=== PATIENT | male | born 1945 | race Caucasian/White ===

== ENCOUNTER 2018-08-01 09:46 | Inpatient (IN) | payer MEDICARE, OTHER ==
[2018-08-01] MEDS ORDERED: Scopolamine 1.5 MG Transdermal Patch TRDERM ONE (10:30)
[2018-08-01] MEDS ORDERED: Ropivacaine 49.25 ML, Ketorolac 30 MG, EPINEPHrine 0.5 MG, cloNIDine 80 MCG, Sodium Chl... INJECT ONE ×5 (10:30)
[2018-08-01] MEDS ORDERED: Acetaminophen 500 MG Tab PO ONE (10:30)
[2018-08-01] MEDS ORDERED: Lactated Ringers 1,000 ML IV SCH (10:30)
[2018-08-01] MEDS ORDERED: ceFAZolin 2 GM in Premix Bag 1 BAG IV ONE (10:30)
[2018-08-01] MEDS ORDERED: Gabapentin 300 MG Cap PO ONE (10:30)
[2018-08-01] MEDS ORDERED: Tranexamic Acid 3,000 MG, Sodium Chloride 0.9% 100 ML IRR ONE ×2 (10:45)
[2018-08-01] MEDS ORDERED: Ondansetron 4 MG/2 ML SDV IVPUSH PRN (13:34)
[2018-08-01] MEDS ORDERED: diphenhydrAMINE 50 MG/ML SDV IVPUSH PRN (13:34)
[2018-08-01] MEDS ORDERED: traMADol 50 MG Tab PO PRN (13:34)
[2018-08-01] MEDS ORDERED: Sennosides 8.6 MG Tab PO PRN (13:34)
[2018-08-01] MEDS ORDERED: Acetaminophen/oxyCODONE 325-5 MG Tab PO PRN (13:34)
[2018-08-01] MEDS ORDERED: Naloxone 0.4 MG/ML SDV IVPUSH PRN (13:34)
[2018-08-01] MEDS ORDERED: Bisacodyl 5 MG Tab PO PRN (13:34)
[2018-08-01] MEDS ORDERED: Magnesium Hydroxide 400 MG/5 ML Susp 30 ML Cup PO PRN (13:34)
[2018-08-01] MEDS ORDERED: Docusate Sodium 100 MG Cap PO PRN (13:34)
[2018-08-01] MEDS ORDERED: Morphine 2 MG/ML Syringe IVPUSH PRN (13:34)
[2018-08-01] MEDS ORDERED: ceFAZolin 1 GM Vial IVPUSH SCH (13:45)
[2018-08-01] MEDS ORDERED: Lactated Ringers 1,000 ML IV ONE (16:05)
[2018-08-01] MEDS ORDERED: Ropivacaine 0.5% 5 MG/ML 30 ML SDV INJECT ONE (16:05)
[2018-08-01] MEDS ORDERED: fentaNYL 100 MCG/2 ML SDV IV ONE (16:05)
[2018-08-01] MEDS ORDERED: Midazolam 1 MG/ML 2 ML SDV IV ONE (16:05)
[2018-08-01] MEDS ORDERED: Ondansetron 4 MG/2 ML SDV IVPUSH ONE (16:05)
[2018-08-01] MEDS ORDERED: ePHEDrine 50 MG/ML SDV IV ONE (16:05)
[2018-08-01] MEDS ORDERED: Propofol 200 MG/20 ML SDV IV ONE (16:05)
[2018-08-01] MEDS ORDERED: Furosemide 40 MG Tab PO SCH (17:00)
--- NOTE | 2018-08-01 17:04 | PCM.SN ---
- Free Text/Narrative Note: PROVIDER SIMPLE NOTE PATIENT NAME:SHAWN MONTES DE OCA Date of :1945 Date:08/01/2018 1645 ANESTHESIA ACUTE PAIN SERVICE Date:08/01/2018 Time:1605 to 1617 Preoperative Dx:right knee osteoarthritis postoperative Dx:right partial knee replacement The surgeon and patient requests Postoperative Pain Control using Peripheral Nerve Block Procedure:Right Adductor Canal Nerve Block using ultrasound guidance Risks and benefits discussed with patient and consent was received Monitors NIBP ECG SAO2 please see nurses notes for vital signs The right leg was placed in a frog leg position ,a preprocedure U/S scan was performed identifying the Sartorius Muscle and Femerol Artery.The needle was inserted and prepped prior with chlora prep swab.Using direct U/S visualization, I inserted and advanced 20 ga 4 inch needle [stimuplexultra 360 insulated echogenic] into proper position using 2 passes.A total of 20 cc's of Naropin .5% , in divided doses and frequent negative aspiration,was injected with direct visualization.took several pictures and removed needle.Patient offered no complaints and no complications were noted. Documentation:Please see images recorded in PAC system Thank You Lorraine Amado CRNA
--- NOTE | 2018-08-01 17:19 | PCM.SN ---
- Free Text/Narrative Note: 08/02/2018 0840 Visited with Patient and he offers no complaints from yesterday or today.States he has some aching in knee,though has had no pain.
[2018-08-01] MEDS: Ketorolac 30 MG/ML SDV IVPUSH SCH ×2 (17:39→23:47)
[2018-08-01] MEDS: metFORMIN 1,000 MG Tab PO SCH (17:41)
[2018-08-01] MEDS: Gabapentin 300 MG Cap PO SCH ×2 (17:41→21:08)
[2018-08-01] MEDS: Potassium Chloride 20 MEQ Tab.ER PO SCH (17:42)
[2018-08-01] MEDS: ceFAZolin 2 GM in Premix Bag 1 BAG IV SCH (20:50)
[2018-08-01] MEDS: Simvastatin 20 MG Tab PO SCH (21:05)
[2018-08-01] MEDS: Sodium Chloride 0.9% 10 ML Syringe FLUSH PRN ×2 (21:09→23:48)
--- NOTE | 2018-08-01 21:20 | OR ---
DATE OF OPERATION: 08/01/2018 SURGEON: Ronaldo Tomas DO PREOPERATIVE DIAGNOSIS: Right knee primary osteoarthritis. POSTOPERATIVE DIAGNOSIS: Right knee primary osteoarthritis. PROCEDURE: Right knee lateral unicompartmental arthroplasty. SUBSTATION OPERATOR APPRENTICE: Nicole Edgar NP. Nurse practitioner, Nicole Edgar NP, played an essential role in assisting in this case, helping to position the patient, retract structures as needed, as well as suturing and cutting sutures as indicated. Her presence improved patient's safety and decreased operative time. ANESTHESIA: Spinal plus conscious sedation. FLUID: Lactated Ringer solution. ESTIMATED BLOOD LOSS: 200 mL. COMPLICATIONS: None. SPECIMEN: None. DISCHARGE DISPOSITION: Stable to PACU. TOURNIQUET TIME: 72 minutes. INSTRUMENTATION: DePuy Sigma size 3 intercondylar cemented femur; size 2, 9 mm polyethylene tibial insert, fixed bearing; and a size 2 intercondylar metal- backed cemented tibial tray. INDICATIONS FOR THE PROCEDURE: The patient was seen preoperatively in the clinic. He had failed nonoperative treatment. Risks and benefits of the procedure were explained to the patient. Informed consent was obtained. Preoperative imaging confirmed the above-mentioned diagnosis. DETAILS OF PROCEDURE: The patient was seen preoperatively by myself and the Anesthesia staff in the preop holding area, where the operative site was marked. He was brought to the operative suite by Anesthesia staff where spinal sedation plus conscious sedation were administered. All extremities were found to be well padded. He had a well-padded tourniquet placed on the right thigh. He had a sterile Burks catheter inserted. The left lower extremity was placed into a stirrup. The right lower extremity was placed in about 15 degrees of flexion into the hip jasmine under the tourniquet. The right lower extremity was then prepped and draped in a sterile manner. A time-out was called identifying the correct patient, correct procedure, the correct site, and antibiotics had been begun within appropriate period of time. The right lower extremity was exsanguinated. Tourniquet was raised to 300 mmHg for 72 minutes and let down after cementing. A midline incision was made 3 fingerbreadths proximal to the patella down to the level of the tibial tubercle. A lateral parapatellar arthrotomy was then made. Gelpi's were used for retraction. Bleeding was controlled with Bovie electrocautery. The infrapatellar fat pad was removed. The anterior portion of the lateral meniscus was removed. The extramedullary tibial cutting guide was then placed. The patellar tendon was retracted laterally. A vertical incision was made plus a horizontal incision. This was not big enough to accommodate a 7 mm paddle. I repeated this process 4 times until arriving at the correct depth. It was equal in both flexion and extension. We then brought the knee out into full extension and then I placed the distal femoral cutting guide and pinned this in place. I then made a distal femoral cut. I then removed the guide and the pins and then flexed the knee. This was one of the more difficult portions of the case because the patella was hard to retract medially. We inverted it at times and then retracted it medially at times and then placed my distal femoral cutting guide. We pinned this in place with a lateral pin only and then made our 3 cuts and our 2 lug holes. I then placed my femoral component, which seemed to fit very nicely and in appropriate rotation and this was stable throughout range of motion. I then removed the femoral component and then slightly adjusted another portion of my vertical cut and then placed my tibial base plate and secured it in place with lamina physician office secretary and then gouged my keel from my tibial base plate and then checked this with my hockey-stick to make sure that it was appropriate. I did settle on a size 2. I measured this a few different times using the hook posteriorly and then trying not to overhang laterally. We then drilled the lug after removing the lamina physician office secretary and flexing the knee through the base plate. Then copiously irrigated with saline as well as Betadine-infused irrigation and TXA and applied a periarticular injection. We then dried the bone and then cemented our components in place in approximately 20 degrees of flexion. After the cement hardened and we had concluded that we had removed all of our excess cement, I then removed more of the infrapatellar fat pad and worked on our bleeders. He had a lot of small bleeders coming from the fat as well as from the bone from our pin placement. I cauterized the posterolateral corner just for good measure, but I did not see any significant bleeding. We applied Gelfoam as well as Floseal and then allowed this to sit in place with a lap sponge for compression. We then placed our final tibial polyethylene component, which provided excellent range of motion and stability. I then irrigated again with Betadine-infused irrigation and then had my entry level marketing assistant close the incision with two #5 [id number] Ethibonds, #1 Stratafix in a continuous manner for the parapatellar arthrotomy, and then another #1 Stratafix subcutaneously, followed by skin nayeli, followed by Betadine-soaked Adaptic and a sterile dressing as well as an Jose wrap. The patient was allowed to awaken from conscious sedation and then transferred to his hospital bed in good condition. /[id number] BS/DANYA
[2018-08-02] MEDS: ceFAZolin 2 GM in Premix Bag 1 BAG IV SCH (04:45)
[2018-08-02] MEDS: Sodium Chloride 0.9% 10 ML Syringe FLUSH PRN (04:45)
[2018-08-02] MEDS: Pantoprazole 40 MG Tab.CR PO SCH (05:02)
--- NOTE | 2018-08-02 09:30 | PCM.PN ---
- General Info Date of Service: 08/02/18 Admission Dx/Problem (Free Text): Right knee primary OA Functional Status: Reports: Pain Controlled, Tolerating Diet, Ambulating - Review of Systems General: Reports: No Symptoms HEENT: Reports: No Symptoms Pulmonary: Reports: No Symptoms Cardiovascular: Reports: No Symptoms Gastrointestinal: Reports: No Symptoms Genitourinary: Reports: No Symptoms Musculoskeletal: Reports: Leg Pain, Joint Pain, Joint Swelling Skin: Reports: No Symptoms Neurological: Reports: No Symptoms Psychiatric: Reports: No Symptoms - Patient Data Vitals - Most Recent: Last Vital Signs Temp 97.6 F 08/02/18 05:00 Pulse 60 08/02/18 05:00 Resp 18 08/02/18 05:00 BP 104/58 L 08/02/18 05:00 Pulse Ox 97 08/02/18 05:00 Weight - Most Recent: 245 lb I&O - Last 24 Hours: Intake & Output 08/01/18 08/02/18 08/02/18 22:59 06:59 14:59 Intake Total 804 Output Total 600 Balance 204 Lab Results Last 24 Hours: Laboratory Results - last 24 hr 08/01/18 08/01/18 08/02/18 Range/Units 10:35 10:35 06:25 WBC 8.0 (4.5-12.0) X10-3/uL RBC 3.37 L (4.30-5.75) x10(6)uL Hgb 11.0 L (13.5-17.8) g/dL Hct 31.1 (30.0-51.3) % MCV 92.1 (80-96) fL MCH 32.6 (27.7-33.6) pg MCHC 35.3 (32.2-35.4) g/dL RDW 13.7 (11.5-15.5) % Plt Count 128 (125-369) X10(3)uL MPV 8.5 (7.4-10.4) fL Neut % (Auto) 72.7 (46-82) % Lymph % (Auto) 16.8 (13-37) % Pinal % (Auto) 8.7 (4-12) % Eos % (Auto) 2 (1.0-5.0) % Baso % (Auto) 0 (0-2) % Neut # (Auto) 5.9 (1.6-8.3) # Lymph # (Auto) 1.3 (0.6-5.0) # Pinal # (Auto) 0.7 (0.0-1.3) # Eos # (Auto) 0.1 (0.0-0.8) # Baso # (Auto) 0.0 (0.0-0.2) # Sodium (135-145) mmol/L Potassium (3.5-5.3) mmol/L Chloride (100-110) mmol/L Carbon Dioxide (21-32) mmol/L BUN (7-18) mg/dL Creatinine (0.70-1.30) mg/dL Est Cr Clr Drug Dosing mL/min Estimated GFR (MDRD) (>60) BUN/Creatinine Ratio (9-20) Glucose (80-116) mg/dL POC Glucose 166 H (80-116) mg/dL Calcium (8.6-10.2) mg/dL Total Bilirubin (0.1-1.3) mg/dL AST (5-25) IU/L ALT (12-36) U/L Alkaline Phosphatase (56-112) IU/L Total Protein (6.0-8.0) g/dL Albumin (3.2-4.6) g/dL Globulin g/dL Albumin/Globulin Ratio Blood Type A NEGATIVE Gel Antibody Screen Negative 08/02/18 Range/Units 06:25 WBC (4.5-12.0) X10-3/uL RBC (4.30-5.75) x10(6)uL Hgb (13.5-17.8) g/dL Hct (30.0-51.3) % MCV (80-96) fL MCH (27.7-33.6) pg MCHC (32.2-35.4) g/dL RDW (11.5-15.5) % Plt Count (125-369) X10(3)uL MPV (7.4-10.4) fL Neut % (Auto) (46-82) % Lymph % (Auto) (13-37) % Pinal % (Auto) (4-12) % Eos % (Auto) (1.0-5.0) % Baso % (Auto) (0-2) % Neut # (Auto) (1.6-8.3) # Lymph # (Auto) (0.6-5.0) # Pinal # (Auto) (0.0-1.3) # Eos # (Auto) (0.0-0.8) # Baso # (Auto) (0.0-0.2) # Sodium 142 (135-145) mmol/L Potassium 3.3 L (3.5-5.3) mmol/L Chloride 101 (100-110) mmol/L Carbon Dioxide 32 (21-32) mmol/L BUN 47 H (7-18) mg/dL Creatinine 1.9 H (0.70-1.30) mg/dL Est Cr Clr Drug Dosing 36.33 mL/min Estimated GFR (MDRD) 35 L (>60) BUN/Creatinine Ratio 24.7 H (9-20) Glucose 155 H (80-116) mg/dL POC Glucose (80-116) mg/dL Calcium 8.6 (8.6-10.2) mg/dL Total Bilirubin 0.9 (0.1-1.3) mg/dL AST 20 (5-25) IU/L ALT 23 D (12-36) U/L Alkaline Phosphatase 75 (56-112) IU/L Total Protein 6.1 (6.0-8.0) g/dL Albumin 3.3 (3.2-4.6) g/dL Globulin 2.8 g/dL Albumin/Globulin Ratio 1.2 Blood Type Gel Antibody Screen Med Orders - Current: Current Medications Allopurinol (Zyloprim) 300 mg PO DAILY [facility] Aspirin (Ecotrin) 325 mg PO DAILY [facility] Bisacodyl (Dulcolax) 10 mg PO DAILY PRN PRN Reason: Constipation Diphenhydramine HCl (Benadryl) 25 mg IVPUSH Q4H PRN PRN Reason: Itching Docusate Sodium (Colace) 100 mg PO BID PRN PRN Reason: Constipation Furosemide (Lasix) 40 mg PO DAILY@1400 [facility] Last Admin: 08/01/18 17:41 Dose: 40 mg Furosemide (Lasix) 80 mg PO DAILY [facility] Gabapentin (Neurontin) 600 mg PO QID [facility] Glipizide (Glucotrol) 10 mg PO BIDMEALS [facility] Last Admin: 08/01/18 17:42 Dose: 10 mg Lactated Ringer's (Ringers, Lactated) 1,000 mls @ 125 mls/hr IV ASDIRECTED [facility] Last Admin: 08/01/18 10:59 Dose: 125 mls/hr Lisinopril (Prinivil) 20 mg PO DAILY [facility] Magnesium Hydroxide (Milk Of Magnesia) 30 ml PO BID PRN PRN Reason: Constipation Metformin HCl (Glucophage) 1,000 mg PO BIDMEALS [facility] Last Admin: 08/01/18 17:41 Dose: 1,000 mg Morphine Sulfate (Morphine) 2 mg IVPUSH Q2H PRN PRN Reason: Breakthrough Pain Naloxone HCl (Narcan) 0.1 mg IVPUSH ONETIME PRN PRN Reason: Oversedation Ondansetron HCl (Zofran) 4 mg IVPUSH Q4H PRN PRN Reason: Nausea/Vomiting Oxycodone/Acetaminophen (Percocet 325-5 Mg) 2 tab PO Q4H PRN PRN Reason: Pain (moderate 4-6) Pantoprazole Sodium (Protonix) 40 mg PO DAILY@0600 [facility] Last Admin: 08/02/18 05:02 Dose: 40 mg Potassium Chloride (Klor-Con M20) 20 meq PO BIDMEALS [facility] Last Admin: 08/01/18 17:42 Dose: 20 meq Senna (Senna) 8.6 mg PO BID PRN PRN Reason: Constipation Simvastatin (Zocor) 20 mg PO BEDTIME [facility] Last Admin: 08/01/18 21:05 Dose: 20 mg Sodium Chloride (Saline Flush) 10 ml FLUSH ASDIRECTED PRN PRN Reason: Keep Vein Open Last Admin: 08/02/18 04:45 Dose: 10 ml Tramadol HCl (Ultram) 100 mg PO Q6H PRN PRN Reason: Pain (mild 1-3) Discontinued Medications Acetaminophen (Tylenol Extra Strength) 1,000 mg PO ONETIME ONE Stop: 08/01/18 10:31 Last Admin: 08/01/18 11:10 Dose: 1,000 mg Ropivacaine 49.25 ml/Ketorolac Tromethamine 30 mg/Epinephrine HCl 0.5 mg/ Clonidine HCl 80 mcg/ Sodium Chloride 48.45 ml 0 ml INJECT ONETIME ONE Stop: 08/01/18 10:31 Last Admin: 08/01/18 13:29 Dose: 100 syringe Tranexamic Acid 3,000 mg/ (Sodium Chloride 100 ml) 0 mg IRR ONETIME ONE Stop: 08/01/18 10:46 Last Admin: 08/01/18 13:30 Dose: 3,000 irr Gabapentin (Neurontin) 300 mg PO ONETIME ONE Stop: 08/01/18 10:31 Last Admin: 08/01/18 11:10 Dose: 300 mg Gabapentin (Neurontin) 600 mg PO QID [facility] Last Admin: 08/01/18 21:08 Dose: 600 mg Cefazolin Sodium/Dextrose 2 gm (/ Premix) 50 mls @ 100 mls/hr IV ONETIME ONE Stop: 08/01/18 10:59 Last Admin: 08/01/18 12:25 Dose: 100 mls/hr Cefazolin Sodium/Dextrose 2 gm (/ Premix) 50 mls @ 100 mls/hr IV Q8H [facility] Stop: 08/02/18 04:29 Last Admin: 08/02/18 04:45 Dose: 100 mls/hr Ketorolac Tromethamine (Toradol) 30 mg IVPUSH Q8H [facility] Stop: 08/02/18 00:01 Last Admin: 08/01/18 23:47 Dose: 30 mg Scopolamine (Transderm-Scop) 1.5 mg TRDERM Q72H ONE Stop: 08/01/18 10:31 Last Admin: 08/01/18 11:13 Dose: 1.5 mg - Exam Quality Assessment: DVT Prophylaxis General: Alert, Oriented, Cooperative, No Acute Distress HEENT: Pupils Equal, Pupils Reactive, Mucous Membr. Moist/[place] Neck: Supple, Trachea Midline Lungs: Normal Respiratory Effort GI/Abdominal Exam: No Distention (Male) Exam: Other Back Exam: Decreased Range of Motion Extremities: Joint Swelling, Leg Pain, Limited Range of Motion Peripheral Pulses: 2+: Dorsalis Pedis (R) Skin: Warm, Dry, Intact Wound/Incisions: Healing Well, Dressing Dry and Intact, No Drainage Psy/Mental Status: Alert, Normal Affect, Normal Mood - Problem List & Annotations (1) Primary osteoarthritis of right knee SNOMED Code(s): 976438988349933, 382149422957125 Code(s): M17.11 - UNILATERAL PRIMARY OSTEOARTHRITIS, RIGHT KNEE Status: Acute Current Visit: Yes - Problem List Review Problem List Initiated/Reviewed/Updated: Yes - My Orders Last 24 Hours: My Active Orders 08/01/18 10:30 Patient Status [ADT] Routine Insert Burks Catheter [Insert Urinary Catheter] [OM.PC] Q24H Lactated Ringers [Ringers, Lactated] 1,000 ml IV ASDIRECTED Sodium Chloride 0.9% [Saline Flush] 10 ml FLUSH ASDIRECTED PRN Peripheral IV Insertion Adult [OM.PC] Routine Sequential Compression Device [OM.PC] Routine 08/01/18 13:34 Knee 1V or 2V Rt [CR] Routine Acetaminophen/oxyCODONE [Percocet 325-5 MG] 2 tab PO Q4H PRN Bisacodyl [Dulcolax] 10 mg PO DAILY PRN Docusate Sodium [Colace] 100 mg PO BID PRN Magnesium Hydroxide [Milk of Magnesia] 30 ml PO BID PRN Morphine 2 mg IVPUSH Q2H PRN Naloxone [Narcan] 0.1 mg IVPUSH ONETIME PRN Ondansetron [Zofran] 4 mg IVPUSH Q4H PRN Sennosides [Senna] 8.6 mg PO BID PRN diphenhydrAMINE [Benadryl] 25 mg IVPUSH Q4H PRN traMADol [Ultram] 100 mg PO Q6H PRN 08/01/18 13:35 Ambulate [RC] ASDIRECTED Antiembolic Devices [RC] .Routine Head of Bed Elevation [RC] CONTINUOUS Intake and Output [RC] QSHIFT May Shower [RC] ASDIRECTED Neurovascular Check [RC] Q4HR Notify Provider Consults [RC] ASDIRECTED Pneumonia Education [RC] UPON RT Incentive Spirometry [RC] Q1HWA Turn, Cough, Deep Breathe [RC] Q1HWA Up to Chair [RC] TIDMEALS VTE/DVT Education [RC] Click to Edit Vital Signs [RC] PER UNIT ROUTINE Wound Care [RC] Q12H Consult to Physician [CONS] Routine Respiratory Care Assess and Treatment [CONS] Routine DVT/VTE Prophylaxis Reflex [OM.PC] Routine Sequential Compression Device [OM.PC] Per Unit Routine Weight bearing status [OM.PC] Routine 08/01/18 13:45 Convert IV to Saline Lock [OM.PC] PER UNIT ROUTINE Ice Therapy [OM.PC] PER UNIT ROUTINE Oral Care [OM.PC] BID 08/01/18 15:00 OT Evaluation and Treatment [CONS] Routine PT Evaluation and Treatment [CONS] Routine 08/01/18 17:00 Furosemide [Lasix] 40 mg PO DAILY@1400 08/01/18 18:00 Potassium Chloride [Klor-Con M20] 20 meq PO BIDMEALS glipiZIDE [Glucotrol] 10 mg PO BIDMEALS metFORMIN [Glucophage] 1,000 mg PO BIDMEALS 08/01/18 21:00 Simvastatin [Zocor] 20 mg PO BEDTIME 08/01/18 Dinner Clear Liquid Diet [DIET] 08/02/18 06:00 Pantoprazole [ProTONIX] 40 mg PO DAILY@0600 08/02/18 08:02 Code Status [Resuscitation Status] Routine 08/02/18 09:00 Allopurinol [Zyloprim] 300 mg PO DAILY Aspirin [Ecotrin] 325 mg PO DAILY Furosemide [Lasix] 80 mg PO DAILY Gabapentin [Neurontin] 600 mg PO QID Lisinopril [Prinivil] 20 mg PO DAILY 08/02/18 09:23 Urinary Catheter Assessment [RC] QSHIFT 08/02/18 13:45 Oral Care [OM.PC] BID 08/02/18 Breakfast Consistent Carbohydrate Diet [DIET] 08/03/18 05:15 CBC WITH AUTO DIFF [HEME] DAILY COMPREHENSIVE METABOLIC PN,CMP [CHEM] DAILY 08/03/18 13:45 Oral Care [OM.PC] BID 08/04/18 05:15 CBC WITH AUTO DIFF [HEME] DAILY COMPREHENSIVE METABOLIC PN,CMP [CHEM] DAILY 08/04/18 13:45 Oral Care [OM.PC] BID 08/05/18 05:15 CBC WITH AUTO DIFF [HEME] DAILY COMPREHENSIVE METABOLIC PN,CMP [CHEM] DAILY 08/05/18 13:45 Oral Care [OM.PC] BID 08/06/18 05:15 CBC WITH AUTO DIFF [HEME] DAILY 08/06/18 13:45 Oral Care [OM.PC] BID 08/07/18 13:45 Oral Care [OM.PC] BID 08/08/18 13:45 Oral Care [OM.PC] BID 08/09/18 13:45 Oral Care [OM.PC] BID 08/10/18 13:45 Oral Care [OM.PC] BID - Plan Plan:: Assessment: 72-year-old male postoperative day 1 status post right knee lateral compartment arthroplasty with bloody urine and urinary retention. Plan:DVT prophylaxis, PT, OT, fluid management per hospitalist. Straight catheter when necessary. Plan for swing bed.
[2018-08-02] MEDS: metFORMIN 1,000 MG Tab PO SCH ×2 (09:52→17:25)
[2018-08-02] MEDS: Potassium Chloride 20 MEQ Tab.ER PO SCH ×2 (09:53→17:25)
[2018-08-02] MEDS: Lisinopril 20 MG Tab PO SCH (09:55)
[2018-08-02] MEDS: Gabapentin 600 MG Tab PO SCH ×4 (09:55→20:55)
[2018-08-02] MEDS: Allopurinol 300 MG Tab PO SCH (09:56)
[2018-08-02] MEDS: Furosemide 80 MG Tab PO SCH (09:57)
[2018-08-02] MEDS: Aspirin 325 MG Tab.EC PO SCH (10:40)
--- NOTE | 2018-08-02 10:53 | CR ---
INDICATION: Postop hemiarthroplasty. RIGHT KNEE: Portable AP and lateral views of the right knee were obtained 08/01 and revealed a lateral hemiarthroplasty of the right knee with components in satisfactory position and alignment and no definite complicating process identified. There is some air in the knee joint postop, as expected. Overlying skin staple are noted anteriorly. IMPRESSION: Satisfactory appearance post lateral hemiarthroplasty right knee. WALT
--- NOTE | 2018-08-02 10:54 | US ---
INDICATION: Right thigh adductor nerve block. ULTRASOUND RFA GUIDANCE: Utilizing ultrasonic guidance with multiple images, , location for adductor nerve block was obtained. [facility]
--- NOTE | 2018-08-02 12:20 | CONS ---
DATE OF CONSULTATION: 08/02/2018 HISTORY OF PRESENT ILLNESS: Gaurav is a 72-year-old man from [place], [place], with a history of hypertension, diabetes, diabetic peripheral neuropathy, BPH, hyperlipidemia, and osteoarthritis. Gaurav underwent right partial knee replacement of the lateral compartment on 08/01/[address] Lai Tomas at [place]. He is seen now for management of medical conditions in the postoperative period. The patient states he is fairly comfortable. He has ache in his knee, but no severe pain. He is examined in his postoperative bed. PAST MEDICAL HISTORY: Osteoarthritis of the right knee, slowly progressive, worse over the past 3 months. He has also had chronic low back pain and describes back claudication upon approximately 3/4 of a block walking. 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 He had cholecystectomy in 2011, appendectomy in 1974, bilateral cataract surgeries, and T and A. past medical history also includes type 2 diabetes, hypertension, peripheral neuropathy, hypertriglyceridemia, chronic kidney disease stage 2, and onychomycosis of the nails. MEDICATIONS: 1. Simvastatin 20 mg at bedtime. 2. Potassium 20 mEq daily. 3. Metformin 1000 mg b.i.d. 4. Lisinopril 20 mg daily. 5. Gabapentin 600 mg q.i.d. 6. Furosemide 80 mg a.m., 40 mg p.m. 7. Allopurinol 300 mg daily. 8. Fish oil capsules one daily. 9. Multiple vitamin 1 daily. 10.Mag-Ox 400 mg b.i.d. 11.Imodium q.i.d. p.r.n. 12.Diazepam 5 mg every 4 hours p.r.n. 13.Vitamin B12 500 mcg daily. 14.Vitamin D 5000 units daily. 15.Tenoretic 50-25 one daily. 16.Aspirin 81 mg daily. 17.Glipizide 10 mg b.i.d. ALLERGIES: Famotidine, reaction not listed. HABITS: Nonsmoker and nondrinker. 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 He has never been . Family medical history showed his father at age 74 of an AR. Mother at age 92 of arthritis and old age. The patient has no siblings and nearest relatives would be 5 cousins scattered from [place] to [place] to [place] with whom he does not have regular contact. REVIEW OF SYSTEMS: GENERAL: No seizure, syncope, or recent significant weight change. SKIN: Negative for rash. HEENT: No recent changes in hearing or vision. 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 No sore throat or URI. No cough or purulent sputum. No chest pain or palpitations. He denies any history of heart disease, but he has been on the furosemide as mentioned and does give a history of mild swelling of his lower extremities. No nausea, vomiting, or constipation. He states he does have intermittent loose stools over the past year. Of significance is he was on both magnesium and metformin that may be contributing. No hematochezia or melena. He has had colonoscopy x1 that is negative that showed only diverticular disease. He does have some urinary hesitancy, but has nocturia 0-1 times. No hematuria. No joint inflammation, skin rash, mood instability or temperature intolerance. PHYSICAL EXAMINATION: GENERAL: He is alert, comfortable and a good historian. VITAL SIGNS: Blood pressure 108/68, pulse 60 and regular, respirations normal, O2 saturation 97% on room air. Weight 245 pounds. SKIN: Anicteric, warm and dry without rash. He has a dressing over his right knee incision. HEENT: Showed TMs to be clear. Pupils are equal and reactive with evidence of IOLs in place. Throat is clear. Mouth dry. LUNGS: Clear to the bases with good air movement. HEART: Regular without murmur, rub or gallop. Carotids are brisk without bruits. ABDOMEN: Obese, soft, nontender. No masses or organomegaly. He has a well-healed left upper quadrant diagonal surgical scar. No hernias noted. EXTERNAL GENITALIA: Normal. EXTREMITIES: Warm. He has excellent dorsalis pedis pulses and palpable posterior tibial pulses bilaterally. He does have 1+ pitting edema at both malleoli and slight edema of his right ankle. Motor exam is slightly limited by pain at the right knee, but otherwise symmetric. NEUROLOGIC: He does have a tremor of the right upper extremity. LABORATORY DATA: White count 8000, hemoglobin 11, MCV 92. Sodium 142, potassium 3.3, BUN 47, creatinine 1.9, glucose 156. ASSESSMENT: 1. One day postop partial knee replacement, right side. 2. Osteoarthritis, knee and lumbar spine. 3. Chronic essential hypertension. 4. Type 2 diabetes. 5. Chronic kidney disease. 6. Benign prostatic hyperplasia. 7. Diabetic peripheral neuropathy. 8. Hyperlipidemia. 9. Chronic use of diuretic with ankle edema, question congestive heart failure. 10.Loose stools, likely medication related that would include metformin, magnesium, and fish oil capsules. 11.History of hyperuricemia. 12.Upper extremity tremor, ? mild Parkinson's. PLAN: We will follow him in the postoperative period for management of his medical problems. Anticipate following acute hospitalization recovery from his knee surgery. He will enter swing bed for further rehab followed by plans to be discharged to home upon adequate recovery. /[id number] MARGO/DANYA
[2018-08-02] MEDS: Simvastatin 20 MG Tab PO SCH (20:52)
[2018-08-03] MEDS: Pantoprazole 40 MG Tab.CR PO SCH (05:50)
[2018-08-03] MEDS: metFORMIN 1,000 MG Tab PO SCH ×2 (07:49→18:25)
[2018-08-03] MEDS: Potassium Chloride 20 MEQ Tab.ER PO SCH ×3 (09:13→18:29)
[2018-08-03] MEDS: Gabapentin 600 MG Tab PO SCH ×4 (09:14→20:00)
[2018-08-03] MEDS: Furosemide 80 MG Tab PO SCH (09:14)
[2018-08-03] MEDS: Aspirin 325 MG Tab.EC PO SCH (09:14)
[2018-08-03] MEDS: Allopurinol 300 MG Tab PO SCH (09:14)
[2018-08-03] MEDS: Lisinopril 20 MG Tab PO SCH (09:17)
[2018-08-03] MEDS: Sodium Chloride 0.9% 10 ML Syringe FLUSH PRN (09:21)
--- NOTE | 2018-08-03 13:01 | PN ---
DATE SEEN: 08/03/2018 HISTORY: Mr. Bradshaw is a 72-year-old man from [facility] with a history of hypertension, diabetes, neuropathy, BPH, arthritis, and chronic lower extremity edema. He underwent partial knee replacement on 08/01/[address] Lai Tomas at [facility] here and he is in swing bed postop for recuperation. Mr. Bradshaw has had difficulty voiding with necessity of catheterization twice postop. He says that at home before surgery, he did not have any nocturia and he would only occasionally have some hesitancy with urination. He is currently feeling okay. He is having knee pain when he walks, but is tolerable. He is tolerating therapy as well. PHYSICAL EXAMINATION: VITAL SIGNS: Blood pressure 104/55, pulse 73 and regular, respirations normal, O2 saturation 96% on room air, temp 97.6, weight 245 pounds. SKIN: Clear without rash. Dressing is in place over the right knee and was not removed by myself. HEENT: Shows throat to be clear. LUNGS: Clear to the bases. HEART: Regular without murmur or gallop heard. ABDOMEN: Soft, nontender. EXTREMITIES: Show 1+ pitting edema to the mid tibia on the right side and trace edema at the malleoli, left ankle. LABORATORY DATA: Hemoglobin 10.4. Potassium 3.3, BUN 51, creatinine 1.9, uric acid 10. ASSESSMENT: 1. Day 2 postop right partial knee arthroplasty. 2. Chronic anemia. 3. Chronic kidney disease. 4. Hypokalemia. 5. History of chronic peripheral edema. 6. Type 2 diabetes. 7. Gout with hyperuricemia, likely acutely worsened by prerenal azotemia. 8. Hypertension. 9. Hyperlipidemia. PLAN: He will continue his postop rehab and therapy as directed by Dr. Tomas. We will continue to monitor his fluid status, swelling, diabetes, and medication use. We will also continue to provide palliative care measures for his underlying arthritis, decreased mobility, etc. /[id number] MARGO/DANYA
[2018-08-03] MEDS: Simvastatin 20 MG Tab PO SCH (20:01)
[2018-08-04] MEDS: metFORMIN 1,000 MG Tab PO SCH (07:34)
[2018-08-04] MEDS: Potassium Chloride 20 MEQ Tab.ER PO SCH (07:34)
--- NOTE | 2018-08-04 08:08 | PCM.PN ---
- General Info Date of Service: 08/03/18 Admission Dx/Problem (Free Text): Right knee primary OA Functional Status: Reports: Pain Controlled, Tolerating Diet, Ambulating, Urinating - Review of Systems General: Reports: No Symptoms HEENT: Reports: No Symptoms Pulmonary: Reports: No Symptoms Cardiovascular: Reports: No Symptoms Gastrointestinal: Reports: No Symptoms Genitourinary: Reports: Hematuria Musculoskeletal: Reports: Leg Pain, Joint Pain, Joint Swelling Skin: Reports: No Symptoms Neurological: Reports: No Symptoms Psychiatric: Reports: No Symptoms - Patient Data Vitals - Most Recent: Last Vital Signs Temp 98.4 F 08/04/18 04:00 Pulse 76 08/04/18 04:00 Resp 16 08/04/18 04:00 BP 111/61 08/04/18 04:00 Pulse Ox 96 08/04/18 04:00 Weight - Most Recent: 245 lb I&O - Last 24 Hours: Intake & Output 08/03/18 08/04/18 08/04/18 22:59 06:59 14:59 Intake Total 350 Output Total 700 400 Balance -700 -50 Lab Results Last 24 Hours: Laboratory Results - last 24 hr 08/03/18 08/03/18 08/03/18 Range/Units 12:13 17:28 20:06 WBC (4.5-12.0) X10-3/uL RBC (4.30-5.75) x10(6)uL Hgb (13.5-17.8) g/dL Hct (30.0-51.3) % MCV (80-96) fL MCH (27.7-33.6) pg MCHC (32.2-35.4) g/dL RDW (11.5-15.5) % Plt Count (125-369) X10(3)uL MPV (7.4-10.4) fL Neut % (Auto) (46-82) % Lymph % (Auto) (13-37) % Dick[place] % (Auto) (4-12) % Eos % (Auto) (1.0-5.0) % Baso % (Auto) (0-2) % Neut # (Auto) (1.6-8.3) # Lymph # (Auto) (0.6-5.0) # Dick[place] # (Auto) (0.0-1.3) # Eos # (Auto) (0.0-0.8) # Baso # (Auto) (0.0-0.2) # Sodium (135-145) mmol/L Potassium (3.5-5.3) mmol/L Chloride (100-110) mmol/L Carbon Dioxide (21-32) mmol/L BUN (7-18) mg/dL Creatinine (0.70-1.30) mg/dL Est Cr Clr Drug Dosing mL/min Estimated GFR (MDRD) (>60) BUN/Creatinine Ratio (9-20) Glucose (80-116) mg/dL POC Glucose 139 H 184 H 219 H (80-116) mg/dL Calcium (8.6-10.2) mg/dL Total Bilirubin (0.1-1.3) mg/dL AST (5-25) IU/L ALT (12-36) U/L Alkaline Phosphatase (56-112) IU/L Total Protein (6.0-8.0) g/dL Albumin (3.2-4.6) g/dL Globulin g/dL Albumin/Globulin Ratio 08/04/18 08/04/18 08/04/18 Range/Units 05:59 06:28 06:28 WBC 8.5 (4.5-12.0) X10-3/uL RBC 3.02 L (4.30-5.75) x10(6)uL Hgb 9.5 L (13.5-17.8) g/dL Hct 28.0 L (30.0-51.3) % MCV 92.8 (80-96) fL MCH 31.5 (27.7-33.6) pg MCHC 34.0 (32.2-35.4) g/dL RDW 13.7 (11.5-15.5) % Plt Count 148 (125-369) X10(3)uL MPV 8.6 (7.4-10.4) fL Neut % (Auto) 71.7 (46-82) % Lymph % (Auto) 18.5 (13-37) % [place] % (Auto) 8.3 (4-12) % Eos % (Auto) 1 (1.0-5.0) % Baso % (Auto) 0 (0-2) % Neut # (Auto) 6.1 (1.6-8.3) # Lymph # (Auto) 1.6 (0.6-5.0) # Dick[place] # (Auto) 0.7 (0.0-1.3) # Eos # (Auto) 0.1 (0.0-0.8) # Baso # (Auto) 0.0 (0.0-0.2) # Sodium 141 (135-145) mmol/L Potassium 3.6 (3.5-5.3) mmol/L Chloride 102 (100-110) mmol/L Carbon Dioxide 31 (21-32) mmol/L BUN 47 H (7-18) mg/dL Creatinine 1.5 H (0.70-1.30) mg/dL Est Cr Clr Drug Dosing 46.02 mL/min Estimated GFR (MDRD) 46 L (>60) BUN/Creatinine Ratio 31.3 H (9-20) Glucose 115 (80-116) mg/dL POC Glucose 113 D (80-116) mg/dL Calcium 8.7 (8.6-10.2) mg/dL Total Bilirubin 1.0 (0.1-1.3) mg/dL AST 13 (5-25) IU/L ALT 15 D (12-36) U/L Alkaline Phosphatase 60 (56-112) IU/L Total Protein 6.2 (6.0-8.0) g/dL Albumin 2.9 L (3.2-4.6) g/dL Globulin 3.3 g/dL Albumin/Globulin Ratio 0.9 Med Orders - Current: Current Medications Allopurinol (Zyloprim) 300 mg PO DAILY [facility] Last Admin: 08/03/18 09:14 Dose: 300 mg Aspirin (Ecotrin) 325 mg PO DAILY [facility] Last Admin: 08/03/18 09:14 Dose: 325 mg Bisacodyl (Dulcolax) 10 mg PO DAILY PRN PRN Reason: Constipation Docusate Sodium (Colace) 100 mg PO BID PRN PRN Reason: Constipation Furosemide (Lasix) 80 mg PO DAILY [facility] Last Admin: 08/03/18 09:14 Dose: 80 mg Gabapentin (Neurontin) 600 mg PO QID [facility] Last Admin: 08/03/18 20:00 Dose: 600 mg Glipizide (Glucotrol) 10 mg PO BIDMEALS [facility] Last Admin: 08/04/18 07:34 Dose: 10 mg Lisinopril (Prinivil) 20 mg PO DAILY [facility] Last Admin: 08/03/18 09:17 Dose: 20 mg Metformin HCl (Glucophage) 1,000 mg PO BIDMEALS [facility] Last Admin: 08/04/18 07:34 Dose: 1,000 mg Oxycodone/Acetaminophen (Percocet 325-5 Mg) 2 tab PO Q4H PRN PRN Reason: Pain (moderate 4-6) Potassium Chloride (Klor-Con M20) 20 meq PO TIDMEALS [facility] Last Admin: 08/04/18 07:34 Dose: 20 meq Senna (Senna) 8.6 mg PO BID PRN PRN Reason: Constipation Simvastatin (Zocor) 20 mg PO BEDTIME [facility] Last Admin: 08/03/18 20:01 Dose: 20 mg Sodium Chloride (Saline Flush) 10 ml FLUSH ASDIRECTED PRN PRN Reason: Keep Vein Open Last Admin: 08/03/18 09:21 Dose: 10 ml Tramadol HCl (Ultram) 100 mg PO Q6H PRN PRN Reason: Pain (mild 1-3) Discontinued Medications Acetaminophen (Tylenol Extra Strength) 1,000 mg PO ONETIME ONE Stop: 08/01/18 10:31 Last Admin: 08/01/18 11:10 Dose: 1,000 mg Ropivacaine 49.25 ml/Ketorolac Tromethamine 30 mg/Epinephrine HCl 0.5 mg/ Clonidine HCl 80 mcg/ Sodium Chloride 48.45 ml 0 ml INJECT ONETIME ONE Stop: 08/01/18 10:31 Last Admin: 08/01/18 13:29 Dose: 100 syringe Tranexamic Acid 3,000 mg/ (Sodium Chloride 100 ml) 0 mg IRR ONETIME ONE Stop: 08/01/18 10:46 Last Admin: 08/01/18 13:30 Dose: 3,000 irr Diphenhydramine HCl (Benadryl) 25 mg IVPUSH Q4H PRN PRN Reason: Itching Furosemide (Lasix) 40 mg PO DAILY@1400 [facility] Last Admin: 08/01/18 17:41 Dose: 40 mg Gabapentin (Neurontin) 300 mg PO ONETIME ONE Stop: 08/01/18 10:31 Last Admin: 08/01/18 11:10 Dose: 300 mg Gabapentin (Neurontin) 600 mg PO QID [facility] Last Admin: 08/01/18 21:08 Dose: 600 mg Cefazolin Sodium/Dextrose 2 gm (/ Premix) 50 mls @ 100 mls/hr IV ONETIME ONE Stop: 08/01/18 10:59 Last Admin: 08/01/18 12:25 Dose: 100 mls/hr Lactated Ringer's (Ringers, Lactated) 1,000 mls @ 125 mls/hr IV ASDIRECTED [facility] Last Admin: 08/01/18 10:59 Dose: 125 mls/hr Cefazolin Sodium/Dextrose 2 gm (/ Premix) 50 mls @ 100 mls/hr IV Q8H [facility] Stop: 08/02/18 04:29 Last Admin: 08/02/18 04:45 Dose: 100 mls/hr Ketorolac Tromethamine (Toradol) 30 mg IVPUSH Q8H [facility] Stop: 08/02/18 00:01 Last Admin: 08/01/18 23:47 Dose: 30 mg Magnesium Hydroxide (Milk Of Magnesia) 30 ml PO BID PRN PRN Reason: Constipation Morphine Sulfate (Morphine) 2 mg IVPUSH Q2H PRN PRN Reason: Breakthrough Pain Naloxone HCl (Narcan) 0.1 mg IVPUSH ONETIME PRN PRN Reason: Oversedation Ondansetron HCl (Zofran) 4 mg IVPUSH Q4H PRN PRN Reason: Nausea/Vomiting Pantoprazole Sodium (Protonix) 40 mg PO DAILY@0600 [facility] Last Admin: 08/03/18 05:50 Dose: 40 mg Potassium Chloride (Klor-Con M20) 20 meq PO BIDMEALS [facility] Last Admin: 08/02/18 17:25 Dose: 20 meq Scopolamine (Transderm-Scop) 1.5 mg TRDERM Q72H ONE Stop: 08/01/18 10:31 Last Admin: 08/01/18 11:13 Dose: 1.5 mg - Exam Quality Assessment: DVT Prophylaxis General: Alert, Oriented, Cooperative, No Acute Distress HEENT: Pupils Equal, Pupils Reactive, EOMI, Mucous Membr. Moist/[place] Neck: Supple, Trachea Midline Lungs: Normal Respiratory Effort GI/Abdominal Exam: No Distention Extremities: Joint Swelling, Limited Range of Motion, Increased Warmth Peripheral Pulses: 2+: Dorsalis Pedis (R) Skin: Warm, Dry, Intact Wound/Incisions: Healing Well, Dressing Dry and Intact, Drainage Neurological: No New Focal Deficit Psy/Mental Status: Alert, Normal Affect, Normal Mood - Problem List & Annotations (1) Primary osteoarthritis of right knee SNOMED Code(s): 076185151602922, 742519674501102 Code(s): M17.11 - UNILATERAL PRIMARY OSTEOARTHRITIS, RIGHT KNEE Status: Acute Current Visit: Yes - Problem List Review Problem List Initiated/Reviewed/Updated: Yes - My Orders Last 24 Hours: My Active Orders 08/03/18 10:52 Dressing Change [Wound Care] [RC] DAILY Remove Dressing [OM.PC] Routine 08/03/18 13:45 Oral Care [OM.PC] BID 08/04/18 13:45 Oral Care [OM.PC] BID 08/05/18 05:15 CBC WITH AUTO DIFF [HEME] DAILY COMPREHENSIVE METABOLIC PN,CMP [CHEM] DAILY 08/05/18 13:45 Oral Care [OM.PC] BID 08/06/18 05:15 CBC WITH AUTO DIFF [HEME] DAILY 08/06/18 13:45 Oral Care [OM.PC] BID 08/07/18 13:45 Oral Care [OM.PC] BID 08/08/18 13:45 Oral Care [OM.PC] BID 08/09/18 13:45 Oral Care [OM.PC] BID 08/10/18 13:45 Oral Care [OM.PC] BID - Plan Plan:: Assessment: 72-year-old male postoperative day 2 status post right knee lateral compartment arthroplasty with bloody urine and urinary retention. Plan:DVT prophylaxis, PT, OT, fluid management per hospitalist. hematuria resolving. voided 450. Plan for swing bed.
--- NOTE | 2018-08-04 08:13 | PCM.DCSUM1 ---
Discharge Summary - Hospital Course Diagnosis: Stroke: Yes Modified Cecily Scale: Mod.Disablility Requiring Some Help,Able to Walk Without Assistance Modified Sarita Scale Score: 3 - Discharge Data Discharge Date: 08/04/18 Discharge Disposition: DC/Tfer to Inpt Rehab Fac 62 Condition: Good - Discharge Diagnosis/Problem(s) (1) Primary osteoarthritis of right knee SNOMED Code(s): 792463509935409, 970369728577901 ICD Code: M17.11 - UNILATERAL PRIMARY OSTEOARTHRITIS, RIGHT KNEE Status: Acute Current Visit: Yes - Patient Summary/Data Operative Procedure(s) Performed: right lateral PKA Complications: none Consults: Consultations 08/01/18 13:35 Consult to Physician [CONS] Routine Consulting Provider: Osmany Topete Call Completed to Consulting Physician: Yes Reason for Consult: hypertension, diabetes mellitis Person Notified: yes Respiratory Care Assess and Treatment [CONS] Routine Comment: Physician Instructions: Post-op Pneumonia Prevention 08/01/18 15:00 OT Evaluation and Treatment [CONS] Routine Please Evaluate and Treat. OT Reason for Consult: Strengthening This query below is only for informational purposes and is not editable. Admission Diagnosis/Problem: Knee pain PT Evaluation and Treatment [CONS] Routine Please Evaluate and Treat. PT Reason for Consult: Strengthening This query below is only for informational purposes and is not editable. Admission Diagnosis/Problem: Knee pain - Patient Instructions Diet: Usual Diet as Tolerated Activity: Apply Ice, As Tolerated, Full Weight Bearing, No Strenuous Activities Driving: Do Not Drive Showering/Bathing: May Shower Wound/Incision Care: Keep Operative Site/Wound Site Clean and Dry, Change Dressing Daily Notify Provider of: Fever, Increased Pain, Swelling and Redness, Drainage, Nausea and/or Vomiting - Discharge Plan *PRESCRIPTION DRUG MONITORING PROGRAM REVIEWED*: Not Applicable *COPY OF PRESCRIPTION DRUG MONITORING REPORT IN PATIENT PAL: Not Applicable Home Medications: Home Meds Allopurinol 300 mg PO DAILY 08/04/13 [History] Aspirin [Adult Low Dose Aspirin EC] 325 mg PO DAILY 08/04/13 [History] Atenolol/Chlorthalidone [Atenolol-Chlorthalidone 50-25] 1 tab PO DAILY 08/04/13 [History] Cholecalciferol (Vitamin D3) [Vitamin D3] 5,000 unit PO DAILY 08/04/13 [History] Gabapentin 600 mg PO QID 08/04/13 [History] Lisinopril [Prinivil] 20 mg PO DAILY 08/04/13 [History] Magnesium Oxide [Magnesium] 400 mg PO BID 08/04/13 [History] Multivitamin with Minerals [Pedro Multivitamin with Mineral] 1 tab PO DAILY 08/04 [History] [place]-3S/DHA/Epa/Fish Oil/D3 [Fish Vlr-Xywoh-8-Vit D Softgel] 1 each PO DAILY [History] Potassium Chloride [Klor-Con M20] 20 meq PO DAILY 08/04/13 [History] Simvastatin 20 mg PO BEDTIME 08/04/13 [History] diazePAM [Diazepam] 5 mg PO Q4H PRN 08/04/13 [History] metFORMIN [Glucophage] 1,000 mg PO BID 08/04/13 [History] Cyanocobalamin (Vitamin B-12) [B-12] 500 mcg PO DAILY 07/29/18 [History] Furosemide 40 mg PO BEDTIME 07/29/18 [History] Furosemide 80 mg PO DAILY 07/29/18 [History] Loperamide [Imodium] 2 mg PO QID PRN 07/29/18 [History] glipiZIDE [Glucotrol] 10 mg PO BID 08/01/18 [History] Acetaminophen/oxyCODONE [Percocet 325-5 MG] 2 tab PO Q4H PRN tablet 08/04/18 [ Rx] Aspirin [Ecotrin] 325 mg PO DAILY tab.ec 08/04/18 [Rx] Bisacodyl [Dulcolax] 10 mg PO DAILY PRN tablet 08/04/18 [Rx] Docusate Sodium [Colace] 100 mg PO BID PRN cap 08/04/18 [Rx] traMADol [Ultram] 100 mg PO Q6H PRN tablet 08/04/18 [Rx] Patient Handouts: Total Knee Replacement, [id number], Fall Prevention in Hospitals, Adult, Venous Thromboembolism Prevention - Discharge Summary/Plan Comment DC Time >30 min.: No - General Info Functional Status: Reports: Pain Controlled, Tolerating Diet, Ambulating, Urinating - Review of Systems General: Reports: No Symptoms HEENT: Reports: No Symptoms Pulmonary: Reports: No Symptoms Cardiovascular: Reports: No Symptoms Gastrointestinal: Reports: No Symptoms Genitourinary: Reports: Hematuria Musculoskeletal: Reports: Leg Pain, Joint Pain, Joint Swelling Skin: Reports: No Symptoms Neurological: Reports: No Symptoms Psychiatric: Reports: No Symptoms - Patient Data Vitals - Most Recent: Last Vital Signs Temp 98.4 F 08/04/18 04:00 Pulse 76 08/04/18 04:00 Resp 16 08/04/18 04:00 BP 111/61 08/04/18 04:00 Pulse Ox 96 08/04/18 04:00 Weight - Most Recent: 245 lb I&O - Last 24 hours: Intake & Output 08/03/18 08/04/18 08/04/18 22:59 06:59 14:59 Intake Total 350 Output Total 700 400 Balance -700 -50 Lab Results - Last 24 hrs: Laboratory Results - last 24 hr 08/03/18 08/03/18 08/03/18 Range/Units 12:13 17:28 20:06 WBC (4.5-12.0) X10-3/uL RBC (4.30-5.75) x10(6)uL Hgb (13.5-17.8) g/dL Hct (30.0-51.3) % MCV (80-96) fL MCH (27.7-33.6) pg MCHC (32.2-35.4) g/dL RDW (11.5-15.5) % Plt Count (125-369) X10(3)uL MPV (7.4-10.4) fL Neut % (Auto) (46-82) % Lymph % (Auto) (13-37) % [place] % (Auto) (4-12) % Eos % (Auto) (1.0-5.0) % Baso % (Auto) (0-2) % Neut # (Auto) (1.6-8.3) # Lymph # (Auto) (0.6-5.0) # [place] # (Auto) (0.0-1.3) # Eos # (Auto) (0.0-0.8) # Baso # (Auto) (0.0-0.2) # Sodium (135-145) mmol/L Potassium (3.5-5.3) mmol/L Chloride (100-110) mmol/L Carbon Dioxide (21-32) mmol/L BUN (7-18) mg/dL Creatinine (0.70-1.30) mg/dL Est Cr Clr Drug Dosing mL/min Estimated GFR (MDRD) (>60) BUN/Creatinine Ratio (9-20) Glucose (80-116) mg/dL POC Glucose 139 H 184 H 219 H (80-116) mg/dL Calcium (8.6-10.2) mg/dL Total Bilirubin (0.1-1.3) mg/dL AST (5-25) IU/L ALT (12-36) U/L Alkaline Phosphatase (56-112) IU/L Total Protein (6.0-8.0) g/dL Albumin (3.2-4.6) g/dL Globulin g/dL Albumin/Globulin Ratio 08/04/18 08/04/18 08/04/18 Range/Units 05:59 06:28 06:28 WBC 8.5 (4.5-12.0) X10-3/uL RBC 3.02 L (4.30-5.75) x10(6)uL Hgb 9.5 L (13.5-17.8) g/dL Hct 28.0 L (30.0-51.3) % MCV 92.8 (80-96) fL MCH 31.5 (27.7-33.6) pg MCHC 34.0 (32.2-35.4) g/dL RDW 13.7 (11.5-15.5) % Plt Count 148 (125-369) X10(3)uL MPV 8.6 (7.4-10.4) fL Neut % (Auto) 71.7 (46-82) % Lymph % (Auto) 18.5 (13-37) % [place] % (Auto) 8.3 (4-12) % Eos % (Auto) 1 (1.0-5.0) % Baso % (Auto) 0 (0-2) % Neut # (Auto) 6.1 (1.6-8.3) # Lymph # (Auto) 1.6 (0.6-5.0) # [place] # (Auto) 0.7 (0.0-1.3) # Eos # (Auto) 0.1 (0.0-0.8) # Baso # (Auto) 0.0 (0.0-0.2) # Sodium 141 (135-145) mmol/L Potassium 3.6 (3.5-5.3) mmol/L Chloride 102 (100-110) mmol/L Carbon Dioxide 31 (21-32) mmol/L BUN 47 H (7-18) mg/dL Creatinine 1.5 H (0.70-1.30) mg/dL Est Cr Clr Drug Dosing 46.02 mL/min Estimated GFR (MDRD) 46 L (>60) BUN/Creatinine Ratio 31.3 H (9-20) Glucose 115 (80-116) mg/dL POC Glucose 113 D (80-116) mg/dL Calcium 8.7 (8.6-10.2) mg/dL Total Bilirubin 1.0 (0.1-1.3) mg/dL AST 13 (5-25) IU/L ALT 15 D (12-36) U/L Alkaline Phosphatase 60 (56-112) IU/L Total Protein 6.2 (6.0-8.0) g/dL Albumin 2.9 L (3.2-4.6) g/dL Globulin 3.3 g/dL Albumin/Globulin Ratio 0.9 Med Orders - Current: Current Medications Allopurinol (Zyloprim) 300 mg PO DAILY [facility] Last Admin: 08/03/18 09:14 Dose: 300 mg Aspirin (Ecotrin) 325 mg PO DAILY [facility] Last Admin: 08/03/18 09:14 Dose: 325 mg Bisacodyl (Dulcolax) 10 mg PO DAILY PRN PRN Reason: Constipation Docusate Sodium (Colace) 100 mg PO BID PRN PRN Reason: Constipation Furosemide (Lasix) 80 mg PO DAILY [facility] Last Admin: 08/03/18 09:14 Dose: 80 mg Gabapentin (Neurontin) 600 mg PO QID [facility] Last Admin: 08/03/18 20:00 Dose: 600 mg Glipizide (Glucotrol) 10 mg PO BIDMEALS [facility] Last Admin: 08/04/18 07:34 Dose: 10 mg Lisinopril (Prinivil) 20 mg PO DAILY [facility] Last Admin: 08/03/18 09:17 Dose: 20 mg Metformin HCl (Glucophage) 1,000 mg PO BIDMEALS [facility] Last Admin: 08/04/18 07:34 Dose: 1,000 mg Oxycodone/Acetaminophen (Percocet 325-5 Mg) 2 tab PO Q4H PRN PRN Reason: Pain (moderate 4-6) Potassium Chloride (Klor-Con M20) 20 meq PO TIDMEALS [facility] Last Admin: 08/04/18 07:34 Dose: 20 meq Senna (Senna) 8.6 mg PO BID PRN PRN Reason: Constipation Simvastatin (Zocor) 20 mg PO BEDTIME [facility] Last Admin: 08/03/18 20:01 Dose: 20 mg Sodium Chloride (Saline Flush) 10 ml FLUSH ASDIRECTED PRN PRN Reason: Keep Vein Open Last Admin: 08/03/18 09:21 Dose: 10 ml Tramadol HCl (Ultram) 100 mg PO Q6H PRN PRN Reason: Pain (mild 1-3) Discontinued Medications Acetaminophen (Tylenol Extra Strength) 1,000 mg PO ONETIME ONE Stop: 08/01/18 10:31 Last Admin: 08/01/18 11:10 Dose: 1,000 mg Ropivacaine 49.25 ml/Ketorolac Tromethamine 30 mg/Epinephrine HCl 0.5 mg/ Clonidine HCl 80 mcg/ Sodium Chloride 48.45 ml 0 ml INJECT ONETIME ONE Stop: 08/01/18 10:31 Last Admin: 08/01/18 13:29 Dose: 100 syringe Tranexamic Acid 3,000 mg/ (Sodium Chloride 100 ml) 0 mg IRR ONETIME ONE Stop: 08/01/18 10:46 Last Admin: 08/01/18 13:30 Dose: 3,000 irr Diphenhydramine HCl (Benadryl) 25 mg IVPUSH Q4H PRN PRN Reason: Itching Furosemide (Lasix) 40 mg PO DAILY@1400 [facility] Last Admin: 08/01/18 17:41 Dose: 40 mg Gabapentin (Neurontin) 300 mg PO ONETIME ONE Stop: 08/01/18 10:31 Last Admin: 08/01/18 11:10 Dose: 300 mg Gabapentin (Neurontin) 600 mg PO QID [facility] Last Admin: 08/01/18 21:08 Dose: 600 mg Cefazolin Sodium/Dextrose 2 gm (/ Premix) 50 mls @ 100 mls/hr IV ONETIME ONE Stop: 08/01/18 10:59 Last Admin: 08/01/18 12:25 Dose: 100 mls/hr Lactated Ringer's (Ringers, Lactated) 1,000 mls @ 125 mls/hr IV ASDIRECTED [facility] Last Admin: 08/01/18 10:59 Dose: 125 mls/hr Cefazolin Sodium/Dextrose 2 gm (/ Premix) 50 mls @ 100 mls/hr IV Q8H [facility] Stop: 08/02/18 04:29 Last Admin: 08/02/18 04:45 Dose: 100 mls/hr Ketorolac Tromethamine (Toradol) 30 mg IVPUSH Q8H [facility] Stop: 08/02/18 00:01 Last Admin: 08/01/18 23:47 Dose: 30 mg Magnesium Hydroxide (Milk Of Magnesia) 30 ml PO BID PRN PRN Reason: Constipation Morphine Sulfate (Morphine) 2 mg IVPUSH Q2H PRN PRN Reason: Breakthrough Pain Naloxone HCl (Narcan) 0.1 mg IVPUSH ONETIME PRN PRN Reason: Oversedation Ondansetron HCl (Zofran) 4 mg IVPUSH Q4H PRN PRN Reason: Nausea/Vomiting Pantoprazole Sodium (Protonix) 40 mg PO DAILY@0600 [facility] Last Admin: 08/03/18 05:50 Dose: 40 mg Potassium Chloride (Klor-Con M20) 20 meq PO BIDMEALS [facility] Last Admin: 08/02/18 17:25 Dose: 20 meq Scopolamine (Transderm-Scop) 1.5 mg TRDERM Q72H ONE Stop: 08/01/18 10:31 Last Admin: 08/01/18 11:13 Dose: 1.5 mg - Exam Quality Assessment: Reports: DVT Prophylaxis General: Reports: Alert, Oriented, Cooperative, No Acute Distress HEENT: Reports: Pupils Equal, Pupils Reactive, EOMI, Mucous Membr. Moist/[place] Neck: Reports: Supple, Trachea Midline Lungs: Reports: Normal Respiratory Effort GI/Abdominal Exam: No Distention Extremities: Joint Swelling, Leg Pain, Limited Range of Motion, Increased Warmth Skin: Reports: Warm, Dry, Intact Wound/Incisions: Reports: Healing Well, Dressing Dry and Intact, Drainage Neurological: Reports: No New Focal Deficit Psy/Mental Status: Reports: Alert, Normal Affect, Normal Mood
[2018-08-04] MEDS: Furosemide 80 MG Tab PO SCH (08:22)
[2018-08-04] MEDS: Aspirin 325 MG Tab.EC PO SCH (08:22)
[2018-08-04] MEDS: Allopurinol 300 MG Tab PO SCH (08:22)
[2018-08-04] MEDS: Lisinopril 20 MG Tab PO SCH (09:06)
[2018-08-04] MEDS: Gabapentin 600 MG Tab PO SCH (09:07)
--- NOTE | 2018-08-05 08:39 | CR ---
INDICATION: Edema. CHEST TWO VIEWS: AP and lateral views of the chest 08/04/18 were compared with 07/06/13 and revealed poor inspiration emphasizing the heart which may be slightly enlarged. The aorta is tortuous with calcification in the arch. The lateral view is less than ideal and did not fully include the posterior sulci. Bridging hyperostotic changes are noted in the upper middle through lower middle thoracic spine. No definite evidence of CHF, active infiltrate, or effusion was seen. IMPRESSION: No definite acute process. MTDD
== END 2018-08-04 09:23 | disposition swing bed (61) | DRG 470 ==
LOC: FB.MS 09:46 → UNDOADMIN 09:46 → FB.SDS 09:49 → FB.MS 09:49 → EDSTATUS 12:30
PROVIDERS: ADMIT Orthopaedic Surgery; ATTEND Orthopaedic Surgery
PROC: 0SRC0M9 Replacement of Right Knee Joint with Lateral Unicondylar Synthetic Substitute, Cemented, Open Approach (ICD-10-PCS; principal; 2018-08-01)
PROC: 3E0T3BZ Introduction of Anesthetic Agent into Peripheral Nerves and Plexi, Percutaneous Approach (ICD-10-PCS; 2018-08-01)
DX: M17.11 Unilateral primary osteoarthritis, right knee (principal); I13.0 Hypertensive heart and chronic kidney disease with heart failure and stage 1 through stage 4 chronic kidney disease, or unspecified chronic kidney disease; F41.9 Anxiety disorder, unspecified; F32.9 Major depressive disorder, single episode, unspecified; E11.42 Type 2 diabetes mellitus with diabetic polyneuropathy; E78.5 Hyperlipidemia, unspecified; K21.9 Gastro-esophageal reflux disease without esophagitis; M10.9 Gout, unspecified; E78.00 Pure hypercholesterolemia, unspecified; I10 Essential (primary) hypertension; E55.9 Vitamin D deficiency, unspecified; N40.1 Benign prostatic hyperplasia with lower urinary tract symptoms; R39.12 Poor urinary stream; M54.5 Low back pain; G89.29 Other chronic pain; E11.22 Type 2 diabetes mellitus with diabetic chronic kidney disease; N18.2 Chronic kidney disease, stage 2 (mild); B35.1 Tinea unguium; E78.1 Pure hyperglyceridemia; I50.9 Heart failure, unspecified; G20 Parkinson's disease; G89.18 Other acute postprocedural pain; Z88.8 Allergy status to other drugs, medicaments and biological substances; Z79.84 Long term (current) use of oral hypoglycemic drugs; Z79.82 Long term (current) use of aspirin; Z79.899 Other long term (current) drug therapy; Z90.49 Acquired absence of other specified parts of digestive tract; Z90.5 Acquired absence of kidney
CPT/HCPCS: 36415; 51701; 51798; 71046; 73560-RT; 80053; 82962; 83735; 83880; 84550; 85025; 86850; 86900; 86901; 94150; 97110-GP; 97116-GP; 97161-GP; 97165-GO; 97530-GO; 97535-GO; A9270-GY; C1713; C1776; J0171; J0690; J0735; J1885; J2250; J2405; J2704; J2795; J3010; J7050; J7120

== ENCOUNTER 2018-08-04 09:23 | Inpatient (IN) | payer MEDICARE, OTHER ==
[2018-08-04] MEDS ORDERED: Ondansetron 4 MG/2 ML SDV IV PRN (11:29)
[2018-08-04] MEDS ORDERED: Bisacodyl 5 MG Tab PO PRN (11:29)
[2018-08-04] MEDS ORDERED: Ondansetron 8 MG Tab.DIS PO PRN (11:29)
[2018-08-04] MEDS ORDERED: Docusate Sodium 100 MG Cap PO PRN (11:29)
[2018-08-04] MEDS: Gabapentin 600 MG Tab PO SCH ×3 (13:14→20:17)
--- NOTE | 2018-08-04 13:30 | HP ---
DATE OF ADMISSION TO SWING BED: 08/04/2018 HISTORY: Gaurav is a 72-year-old man from [facility], [place], operated by [facility], who underwent partial right knee arthroplasty on 08/01/[address] Tomas at [facility]. He has been recuperating in acute care and this morning was transferred to swing bed. The patient has been having an adequate recovery from his knee surgery. However, the postoperative course has been complicated by urinary retention necessitating intermittent catheterization x2 and subsequent gross hematuria over the last 48 hours. This morning, he is passing clots and having difficulty passing urine consistent with clot obstruction. Mr. Bradshaw does not have a history of documented prostate problems or bladder problems. He states that it haddad when he passes urine now as well. PHYSICAL EXAMINATION: GENERAL: He is alert, but uncomfortable, leaning forward on stool trying to pass urine. VITAL SIGNS: This morning, blood pressure 92/52, pulse is 78, respirations 14, O2 saturation 94% on room air, temp 98.7, weight 245 pounds. SKIN: Clear. Right knee is not unwrapped. Respirations are easy. HEART: Regular at 78 per minute. EXTREMITIES: No significant edema. LABORATORY WORK: Hemoglobin 9.5 g. This is down from 10.4 yesterday. BUN 47, creatinine 1.5, potassium 3.6, glucose 113. ASSESSMENT: 1. Day #3, postop partial knee arthroplasty, right knee, improving. 2. Gross hematuria with urinary obstruction. 3. Hypokalemia, now improved. 4. Hypertension. 5. Type 2 diabetes. 6. Hyperlipidemia. PLAN: We will hold his blood pressure medication. We will start continues bladder irrigation, will continue his allopurinol for severe hyperuricemia. Chest x-rays done this morning shows an elevated left hemidiaphragm and otherwise unremarkable. Left elevated hemidiaphragm and enlarged heart, otherwise unremarkable. /[id number] RO/MODL MTDD
[2018-08-04] MEDS ORDERED: Lidocaine 2% HCl 6 ML JEL.PF.APP ONE (15:58)
[2018-08-04] MEDS: metFORMIN 1,000 MG Tab PO SCH (17:32)
[2018-08-04] MEDS: Potassium Chloride 20 MEQ Tab.ER PO SCH (20:09)
[2018-08-04] MEDS: Simvastatin 20 MG Tab PO SCH (20:09)
[2018-08-04] MEDS: traMADol 50 MG Tab PO PRN (21:51)
[2018-08-05] MEDS: Furosemide 80 MG Tab PO SCH (08:20)
[2018-08-05] MEDS: Potassium Chloride 20 MEQ Tab.ER PO SCH ×2 (08:20→20:52)
[2018-08-05] MEDS: metFORMIN 1,000 MG Tab PO SCH ×2 (08:20→18:35)
[2018-08-05] MEDS: Cyanocobalamin (Vitamin B12) 500 MCG Tab PO SCH (08:21)
[2018-08-05] MEDS: Cholecalciferol (Vitamin D3) 1,000 Unit Tab PO SCH (08:21)
[2018-08-05] MEDS: Allopurinol 300 MG Tab PO SCH (08:22)
[2018-08-05] MEDS: Gabapentin 600 MG Tab PO SCH ×4 (08:32→20:52)
[2018-08-05] MEDS ORDERED: Potassium Chloride 20 MEQ Tab.ER PO SCH (09:00)
[2018-08-05] MEDS ORDERED: Lisinopril 20 MG Tab PO SCH (09:00)
[2018-08-05] MEDS: Simvastatin 20 MG Tab PO SCH (20:53)
[2018-08-05] MEDS: Acetaminophen/oxyCODONE 325-5 MG Tab PO PRN (20:57)
[2018-08-06] MEDS: Cyanocobalamin (Vitamin B12) 500 MCG Tab PO SCH (08:03)
[2018-08-06] MEDS: Cholecalciferol (Vitamin D3) 1,000 Unit Tab PO SCH (08:03)
[2018-08-06] MEDS: metFORMIN 1,000 MG Tab PO SCH ×2 (08:04→17:48)
[2018-08-06] MEDS: Potassium Chloride 20 MEQ Tab.ER PO SCH ×2 (08:04→21:18)
[2018-08-06] MEDS: Allopurinol 300 MG Tab PO SCH (08:05)
[2018-08-06] MEDS: Furosemide 80 MG Tab PO SCH (08:05)
[2018-08-06] MEDS: Gabapentin 600 MG Tab PO SCH ×4 (08:12→21:18)
[2018-08-06] MEDS: Acetaminophen/oxyCODONE 325-5 MG Tab PO PRN (13:22)
[2018-08-06] MEDS: Simvastatin 20 MG Tab PO SCH (21:18)
[2018-08-07] MEDS: Acetaminophen/oxyCODONE 325-5 MG Tab PO PRN ×2 (00:24→07:38)
[2018-08-07] MEDS: metFORMIN 1,000 MG Tab PO SCH ×2 (07:38→17:39)
[2018-08-07] MEDS: Cholecalciferol (Vitamin D3) 1,000 Unit Tab PO SCH (08:03)
[2018-08-07] MEDS: Cyanocobalamin (Vitamin B12) 500 MCG Tab PO SCH (08:03)
[2018-08-07] MEDS: Allopurinol 300 MG Tab PO SCH (08:04)
[2018-08-07] MEDS: Furosemide 80 MG Tab PO SCH (08:04)
[2018-08-07] MEDS: Potassium Chloride 20 MEQ Tab.ER PO SCH ×2 (08:04→20:20)
[2018-08-07] MEDS: Gabapentin 600 MG Tab PO SCH ×4 (09:18→20:20)
[2018-08-07] MEDS: Simvastatin 20 MG Tab PO SCH (20:20)
[2018-08-08] MEDS: Acetaminophen/oxyCODONE 325-5 MG Tab PO PRN (00:24)
[2018-08-08] MEDS: metFORMIN 1,000 MG Tab PO SCH ×2 (08:10→17:32)
[2018-08-08] MEDS: Potassium Chloride 20 MEQ Tab.ER PO SCH ×2 (08:10→21:58)
[2018-08-08] MEDS: Cyanocobalamin (Vitamin B12) 500 MCG Tab PO SCH (08:11)
[2018-08-08] MEDS: Cholecalciferol (Vitamin D3) 1,000 Unit Tab PO SCH (08:11)
[2018-08-08] MEDS: Furosemide 80 MG Tab PO SCH (08:11)
[2018-08-08] MEDS: Allopurinol 300 MG Tab PO SCH (08:12)
[2018-08-08] MEDS: Gabapentin 600 MG Tab PO SCH ×4 (08:22→22:05)
[2018-08-08] MEDS: Tamsulosin 0.4 MG Cap.ER PO SCH ×2 (08:35→18:47)
[2018-08-08] MEDS: Ciprofloxacin 500 MG Tab PO SCH ×2 (08:35→22:05)
[2018-08-08] MEDS: Finasteride 5 MG Tab PO SCH (08:35)
--- NOTE | 2018-08-08 08:52 | PCM.PN ---
- General Info Date of Service: 08/08/18 Subjective Update: Gaurav is a 72-year-old male total knee arthroplasty last week. The day after the operation, he developed urinary obstruction and has been undergoing continuous bladder irrigation. There is still some blood and clots noted in the urinary bag. In addition,he complains of significant pain when he moves bowels. He has not had any fever or chills. He has a history of type 2 diabetes;well- controlled but no previous history of any prostate diagnosis Functional Status: Reports: Tolerating Diet, Ambulating - Review of Systems Cardiovascular: Reports: No Symptoms Gastrointestinal: Reports: Diarrhea Genitourinary: Reports: Pain Musculoskeletal: Reports: No Symptoms Skin: Reports: No Symptoms Neurological: Reports: No Symptoms - Patient Data Vitals - Most Recent: Last Vital Signs Temp 98.7 F 08/08/18 07:20 Pulse 76 08/08/18 07:20 Resp 14 08/08/18 07:20 BP 126/72 08/08/18 07:20 Pulse Ox 98 08/08/18 07:20 Weight - Most Recent: 111.13 kg I&O - Last 24 Hours: Intake & Output 08/07/18 08/08/18 08/08/18 22:59 06:59 14:59 Output Total 4150 3150 Balance -4150 -3150 Lab Results Last 24 Hours: Laboratory Results - last 24 hr 08/08/18 08/08/18 Range/Units 07:56 07:56 WBC 8.8 (4.5-12.0) X10-3/uL RBC 3.62 L (4.30-5.75) x10(6)uL Hgb 11.5 L (13.5-17.8) g/dL Hct 32.8 (30.0-51.3) % MCV 90.4 (80-96) fL MCH 31.7 (27.7-33.6) pg MCHC 35.1 (32.2-35.4) g/dL RDW 13.4 (11.5-15.5) % Plt Count 261 (125-369) X10(3)uL MPV 7.3 L (7.4-10.4) fL Neut % (Auto) 65.9 (46-82) % Lymph % (Auto) 25.0 (13-37) % [place] % (Auto) 6.1 (4-12) % Eos % (Auto) 3 (1.0-5.0) % Baso % (Auto) 0 (0-2) % Neut # (Auto) 5.8 (1.6-8.3) # Lymph # (Auto) 2.2 (0.6-5.0) # [place] # (Auto) 0.5 (0.0-1.3) # Eos # (Auto) 0.2 (0.0-0.8) # Baso # (Auto) 0.0 (0.0-0.2) # Sodium 142 (135-145) mmol/L Potassium 3.4 L (3.5-5.3) mmol/L Chloride 99 L (100-110) mmol/L Carbon Dioxide 33 H (21-32) mmol/L BUN 37 H D (7-18) mg/dL Creatinine 1.2 (0.70-1.30) mg/dL Est Cr Clr Drug Dosing 57.52 mL/min Estimated GFR (MDRD) 59 L (>60) BUN/Creatinine Ratio 30.8 H (9-20) Glucose 159 H (80-116) mg/dL Calcium 9.6 (8.6-10.2) mg/dL Med Orders - Current: Current Medications Allopurinol (Zyloprim) 300 mg PO DAILY [facility] Last Admin: 08/08/18 08:12 Dose: 300 mg Bisacodyl (Dulcolax) 5 mg PO DAILY PRN PRN Reason: Constipation Cholecalciferol (Vitamin D3) 5,000 units PO DAILY [facility] Last Admin: 08/08/18 08:11 Dose: 5,000 units Ciprofloxacin (Ciprofloxacin Hcl) 500 mg PO BID [facility] Last Admin: 08/08/18 08:35 Dose: 500 mg Cyanocobalamin (Vitamin B12) 500 mcg PO DAILY [facility] Last Admin: 08/08/18 08:11 Dose: 500 mcg Docusate Sodium (Colace) 100 mg PO BID PRN PRN Reason: Constipation Finasteride (Proscar) 5 mg PO DAILY [facility] Last Admin: 08/08/18 08:35 Dose: 5 mg Furosemide (Lasix) 80 mg PO DAILY [facility] Last Admin: 08/08/18 08:11 Dose: 80 mg Gabapentin (Neurontin) 600 mg PO QID [facility] Last Admin: 08/08/18 08:22 Dose: 600 mg Glipizide (Glucotrol) 10 mg PO BIDAC [facility] Last Admin: 08/08/18 08:10 Dose: 10 mg Metformin HCl (Glucophage) 1,000 mg PO BIDMEALS [facility] Last Admin: 08/08/18 08:10 Dose: 1,000 mg Ondansetron HCl (Zofran Odt) 8 mg PO Q8H PRN PRN Reason: nausea, able to take PO Oxycodone/Acetaminophen (Percocet 325-5 Mg) 1 tab PO Q4H PRN PRN Reason: Pain (moderate 4-6) Last Admin: 08/08/18 00:24 Dose: 1 tab Potassium Chloride (Klor-Con M20) 20 meq PO BID [facility] Last Admin: 08/08/18 08:10 Dose: 20 meq Senna/Docusate Sodium (Senna Plus) 1 tab PO BID PRN PRN Reason: Constipation Simvastatin (Zocor) 20 mg PO BEDTIME [facility] Last Admin: 08/07/18 20:20 Dose: 20 mg Tamsulosin HCl (Flomax) 0.4 mg PO BIDPC [facility] Last Admin: 08/08/18 08:35 Dose: 0.4 mg Tramadol HCl (Ultram) 100 mg PO Q6H PRN PRN Reason: Pain Last Admin: 08/04/18 21:51 Dose: 100 mg Discontinued Medications Lidocaine HCl (Glydo) 6 ml .XX ONETIME ONE Stop: 08/04/18 15:59 Last Admin: 08/04/18 16:28 Dose: 6 ml Lisinopril (Prinivil) 20 mg PO DAILY [facility] Ondansetron HCl (Zofran) 8 mg IV Q6H PRN PRN Reason: Nausea/Vomiting Potassium Chloride (Klor-Con M20) 20 meq PO DAILY [facility] - Exam General: Alert, Oriented HEENT: Pupils Equal Neck: Supple Lungs: Clear to Auscultation Cardiovascular: Regular Rate GI/Abdominal Exam: Normal Bowel Sounds, No Distention - Problem List & Annotations (1) Total knee replacement status SNOMED Code(s): 3671825030939, 016241525, 9626552851758 Code(s): Z96.659 - PRESENCE OF UNSPECIFIED ARTIFICIAL KNEE JOINT Status: Acute Current Visit: Yes Qualifiers: Laterality: right Qualified Code(s): Z96.651 - Presence of right artificial knee joint (2) Hematuria SNOMED Code(s): 64122083 Code(s): R31.9 - HEMATURIA, UNSPECIFIED Status: Acute Current Visit: Yes Qualifiers: Hematuria type: unspecified type Qualified Code(s): R31.9 - Hematuria, unspecified (3) Urinary obstruction SNOMED Code(s): 1649621 Code(s): N13.9 - OBSTRUCTIVE AND REFLUX UROPATHY, UNSPECIFIED Status: Acute Current Visit: Yes - Problem List Review Problem List Initiated/Reviewed/Updated: Yes - My Orders Last 24 Hours: My Active Orders 08/08/18 07:40 UA W/MICROSCOPIC [URIN] Routine 08/08/18 09:00 Ciprofloxacin [Ciprofloxacin HCl] 500 mg PO BID Finasteride [Proscar] 5 mg PO DAILY Tamsulosin [Flomax] 0.4 mg PO BIDPC - Plan Plan:: The cause of his obstruction is unclear.?trauma?BPH?Tumor. He has undergone CBI for at least 5 days in the urine still bloody. I called and spoke with Dr. Luong(urology,[place]), and he recommended trial of an antibiotic, Flomax and finasteride. Tomorrow we'll plan to slowly discontinue the CBI and see if he is able to urinate. If he does not, a transfer [place] will be entertained at that point
[2018-08-08] MEDS: Simvastatin 20 MG Tab PO SCH (21:59)
[2018-08-08] MEDS: traMADol 50 MG Tab PO PRN (21:59)
[2018-08-09] MEDS: metFORMIN 1,000 MG Tab PO SCH ×2 (07:08→17:50)
[2018-08-09] MEDS: Furosemide 80 MG Tab PO SCH (09:31)
[2018-08-09] MEDS: Gabapentin 600 MG Tab PO SCH ×4 (09:31→20:23)
[2018-08-09] MEDS: Potassium Chloride 20 MEQ Tab.ER PO SCH ×2 (09:31→20:23)
[2018-08-09] MEDS: Ciprofloxacin 500 MG Tab PO SCH ×2 (09:31→20:23)
[2018-08-09] MEDS: Finasteride 5 MG Tab PO SCH (09:31)
[2018-08-09] MEDS: Tamsulosin 0.4 MG Cap.ER PO SCH ×2 (09:31→18:26)
[2018-08-09] MEDS: Cyanocobalamin (Vitamin B12) 500 MCG Tab PO SCH (09:32)
[2018-08-09] MEDS: Allopurinol 300 MG Tab PO SCH (09:32)
[2018-08-09] MEDS: Cholecalciferol (Vitamin D3) 1,000 Unit Tab PO SCH (09:32)
--- NOTE | 2018-08-09 11:38 | US ---
INDICATION: Hematuria, renal mass beside left kidney, removed in 2000. RENAL ULTRASOUND, COMPLETE: Multiple ultrasonic images were obtained 08/09/[address] scan of the abdomen and pelvis dated 11/06/16. Right kidney measured: 10.6 x 4.5 x 5.5 cm. Left kidney measured: 12.3 x 4.9 x 6.0 cm. There is some irregularity of the renal cortices, compatible with scarring of mild degree, more prominent on the right than the left. At the lower pole of the left kidney, there is a 17 mm probably unchanged simple hypoechoic mass, compatible with a simple cyst. Off the mid pole to lower pole area of the right kidney laterally, there is a larger cyst measuring approximately 45 to 46 mm, which also appears to be essentially unchanged from the previous examination, where it measured 46.5 mm. At the upper pole of the left kidney, there is a 12 mm hypoechoic mass, most likely representing a simple cyst, which was not clearly present on the previous study but may have been a small hypodense lesion measuring approximately 9 mm along the lateral aspect of the upper middle pole of the left kidney. No evidence of obstructive uropathy or definite solid mass lesions could be identified. No calculi were demonstrated. IMPRESSION: 1. Renal cysts, as noted above, appear fairly stable compared with the previous CT scan of 2017. The largest is on the right mid to lower pole laterally, which does splay the renal parenchyma somewhat. 2. Mild renal cortical scarring on the right, minimal on the left. MTDD
[2018-08-09] MEDS: Simvastatin 20 MG Tab PO SCH (20:23)
[2018-08-10] MEDS: metFORMIN 1,000 MG Tab PO SCH ×2 (07:38→18:01)
[2018-08-10] MEDS: Finasteride 5 MG Tab PO SCH (08:59)
[2018-08-10] MEDS: Cholecalciferol (Vitamin D3) 1,000 Unit Tab PO SCH (08:59)
[2018-08-10] MEDS: Potassium Chloride 20 MEQ Tab.ER PO SCH ×2 (08:59→20:17)
[2018-08-10] MEDS: Allopurinol 300 MG Tab PO SCH (08:59)
[2018-08-10] MEDS: Tamsulosin 0.4 MG Cap.ER PO SCH ×2 (08:59→18:02)
[2018-08-10] MEDS: Cyanocobalamin (Vitamin B12) 500 MCG Tab PO SCH (08:59)
[2018-08-10] MEDS: Gabapentin 600 MG Tab PO SCH ×4 (08:59→20:21)
[2018-08-10] MEDS: Ciprofloxacin 500 MG Tab PO SCH ×2 (09:00→20:17)
[2018-08-10] MEDS: Furosemide 80 MG Tab PO SCH (09:00)
--- NOTE | 2018-08-10 09:25 | PN ---
DATE SEEN: 08/09/2018 SUBJECTIVE: Gaurav Bradshaw is a 72-year-old male, seen today for review. He had a recent joint replacement. Swing bed status. Postoperative urinary retention, intermittent catheterization resultant gross hematuria, clots requiring now 2-way irrigation catheter. Urine is clearing. Sense of pressure and discomfort. Knee pain, pressure, not significant pain. LABORATORY STUDIES: 08/08/2018, hemoglobin 11.5, hematocrit 32.8, white count 8,900, electrolytes satisfactory. Random glucose 159. Urine significant for large blood only. Proscar, steroids, and antibiotics on board. ASSESSMENT: Wound was inspected, right knee, healing without difficulty. Mason and wound edges well apposed. Postoperative right knee arthroplasty, secondary diagnosis urinary retention with hematuria. PLAN: We will pull the catheter, close observation, voiding to be observed accordingly. Intervention and care from there. /[id number] LLUVIA/DANYA
[2018-08-10] MEDS ORDERED: Iopamidol 755 MG/ML 150 ML Bottle IV ONE (10:49)
--- NOTE | 2018-08-10 13:29 | CT ---
INDICATION: Hematuria. CT ABDOMEN AND PELVIS WITHOUT CONTRAST: Spiral 2.5 mm axial sections were obtained through the abdomen and pelvis with renal calculus protocol, including sagittal and coronal reconstructions, 08/10/18, and compared with 11/06/16. Total exam DLP = 1,350.58 mGy-cm. The heart appears slightly generous in size. No pericardial effusion was seen. A definite active infiltrate or effusion was not identified with minimal fibrosis suggested at the lung bases. The gallbladder is absent, compatible with history of its removal. The liver was unremarkable, except to note clips at the cystic duct. No biliary tree dilatation was seen. At the left adrenal gland, there is a small low density nodular lesion, measuring approximately 12 x 8 mm, which on the previous study measured approximately 8.6 x 6 mm. Increasing size could represent a significant process , and additional followup is recommended. An additional similar lesion appears unchanged at the tip of the adrenal gland on the right but appears somewhat higher in density, although stable appearing in size. No evidence of renal calcinosis or obstructive uropathy is seen. There is a clip at the lower middle pole posterior cortex of the left kidney. Multiple low density masses are seen on the right, as previously, with little change. They are likely of benign origin - simple cysts. No urinary bladder calculi or gross wall thickening is seen. The prostate is slightly enlarged, measuring approximately 4 x 5.6 x 4.7 cm in AP, transverse, and craniocaudad diameters. The appendix is absent, compatible with history of its removal. No evidence of bowel obstruction or free air was seen. Sigmoid diverticulosis is noted without evidence of diverticulitis. Distal descending diverticulosis is also suggested without evidence of diverticulitis. Minimal calcifications are noted in the aorta and iliac, as well as right femoral arteries. No additional mass lesions, organomegaly, or free fluid collections were identified in the abdomen or pelvis. Degenerative changes and disk disease are noted in the lumbosacral spine with hypertrophic degenerative changes in the thoracic spine visualized. Disk disease is present throughout the lumbosacral spine with most severe changes at L2-3, L3-4, and L4-5. IMPRESSION: 1. No evidence of obstructive uropathy or renal calcinosis. 2. Renal cystic changes on the right. 3. Adrenal nodules, followup recommended as they are of small enough size to be questionable, and one has increased in size compared with the previous study of 2017 - the left side. 4. Post cholecystectomy. 5. Post appendectomy. 6. Degenerative changes and disk disease thoracolumbosacral spine. 7. ASD. 8. Prostatic enlargement. MTDD
[2018-08-10] MEDS: Acetaminophen/oxyCODONE 325-5 MG Tab PO PRN (20:16)
[2018-08-10] MEDS: Simvastatin 20 MG Tab PO SCH (20:17)
[2018-08-11] MEDS: metFORMIN 1,000 MG Tab PO SCH ×2 (08:14→18:19)
[2018-08-11] MEDS: Ciprofloxacin 500 MG Tab PO SCH ×2 (08:14→20:45)
[2018-08-11] MEDS: Tamsulosin 0.4 MG Cap.ER PO SCH ×2 (08:15→18:19)
[2018-08-11] MEDS: Potassium Chloride 20 MEQ Tab.ER PO SCH ×2 (08:15→20:45)
[2018-08-11] MEDS: Finasteride 5 MG Tab PO SCH ×2 (08:16→12:46)
[2018-08-11] MEDS: Allopurinol 300 MG Tab PO SCH (08:17)
[2018-08-11] MEDS: Cyanocobalamin (Vitamin B12) 500 MCG Tab PO SCH (08:17)
[2018-08-11] MEDS: Cholecalciferol (Vitamin D3) 1,000 Unit Tab PO SCH (08:17)
[2018-08-11] MEDS: Gabapentin 600 MG Tab PO SCH ×4 (08:27→20:45)
[2018-08-11] MEDS: Furosemide 80 MG Tab PO SCH (08:28)
[2018-08-11] MEDS ORDERED: Potassium Chloride 20 MEQ Tab.ER PO ONE (09:04)
[2018-08-11] MEDS: Acetaminophen/oxyCODONE 325-5 MG Tab PO PRN (20:44)
[2018-08-11] MEDS: Simvastatin 20 MG Tab PO SCH (20:46)
[2018-08-12] MEDS: traMADol 50 MG Tab PO PRN ×2 (03:04→13:14)
[2018-08-12] MEDS: metFORMIN 1,000 MG Tab PO SCH ×2 (09:08→18:19)
[2018-08-12] MEDS: Ciprofloxacin 500 MG Tab PO SCH (09:09)
[2018-08-12] MEDS: Tamsulosin 0.4 MG Cap.ER PO SCH ×2 (09:09→18:20)
[2018-08-12] MEDS: Potassium Chloride 20 MEQ Tab.ER PO SCH ×2 (09:09→20:30)
[2018-08-12] MEDS: Finasteride 5 MG Tab PO SCH (09:10)
[2018-08-12] MEDS: Furosemide 80 MG Tab PO SCH (09:10)
[2018-08-12] MEDS: Cyanocobalamin (Vitamin B12) 500 MCG Tab PO SCH (09:10)
[2018-08-12] MEDS: Allopurinol 300 MG Tab PO SCH (09:11)
[2018-08-12] MEDS: Cholecalciferol (Vitamin D3) 1,000 Unit Tab PO SCH (09:11)
[2018-08-12] MEDS: Gabapentin 600 MG Tab PO SCH ×4 (09:15→20:30)
[2018-08-12] MEDS: Simvastatin 20 MG Tab PO SCH (20:30)
[2018-08-13] MEDS: metFORMIN 1,000 MG Tab PO SCH ×2 (08:31→17:15)
[2018-08-13] MEDS: Tamsulosin 0.4 MG Cap.ER PO SCH ×2 (08:31→18:12)
[2018-08-13] MEDS: Furosemide 80 MG Tab PO SCH (08:32)
[2018-08-13] MEDS: Finasteride 5 MG Tab PO SCH (08:32)
[2018-08-13] MEDS: Potassium Chloride 20 MEQ Tab.ER PO SCH ×2 (08:32→20:10)
[2018-08-13] MEDS: Cyanocobalamin (Vitamin B12) 500 MCG Tab PO SCH (08:33)
[2018-08-13] MEDS: Cholecalciferol (Vitamin D3) 1,000 Unit Tab PO SCH (08:33)
[2018-08-13] MEDS: Allopurinol 300 MG Tab PO SCH (08:33)
[2018-08-13] MEDS: Gabapentin 600 MG Tab PO SCH ×4 (08:36→20:10)
[2018-08-13] MEDS: traMADol 50 MG Tab PO PRN (08:37)
[2018-08-13] MEDS: Simvastatin 20 MG Tab PO SCH (20:10)
[2018-08-13] MEDS: Acetaminophen/oxyCODONE 325-5 MG Tab PO PRN (21:17)
[2018-08-14] MEDS: Tamsulosin 0.4 MG Cap.ER PO SCH ×2 (08:19→18:24)
[2018-08-14] MEDS: metFORMIN 1,000 MG Tab PO SCH ×2 (08:19→17:39)
[2018-08-14] MEDS: Potassium Chloride 20 MEQ Tab.ER PO SCH ×2 (08:19→20:14)
[2018-08-14] MEDS: Finasteride 5 MG Tab PO SCH (08:20)
[2018-08-14] MEDS: Allopurinol 300 MG Tab PO SCH (08:20)
[2018-08-14] MEDS: Cholecalciferol (Vitamin D3) 1,000 Unit Tab PO SCH (08:20)
[2018-08-14] MEDS: Cyanocobalamin (Vitamin B12) 500 MCG Tab PO SCH (08:20)
[2018-08-14] MEDS: Furosemide 80 MG Tab PO SCH (08:20)
[2018-08-14] MEDS: Gabapentin 600 MG Tab PO SCH ×4 (08:20→20:14)
[2018-08-14] MEDS: Atenolol/Chlorthalidone 50-25 MG Tab PO SCH (09:23)
[2018-08-14] MEDS: Simvastatin 20 MG Tab PO SCH (20:14)
[2018-08-15] MEDS: metFORMIN 1,000 MG Tab PO SCH (07:24)
[2018-08-15] MEDS: Furosemide 80 MG Tab PO SCH (09:31)
[2018-08-15] MEDS: Tamsulosin 0.4 MG Cap.ER PO SCH (09:33)
[2018-08-15] MEDS: Potassium Chloride 20 MEQ Tab.ER PO SCH (09:33)
[2018-08-15] MEDS: Finasteride 5 MG Tab PO SCH (09:34)
[2018-08-15] MEDS: Gabapentin 600 MG Tab PO SCH ×2 (09:34→12:56)
[2018-08-15] MEDS: Allopurinol 300 MG Tab PO SCH (09:34)
[2018-08-15] MEDS: Cholecalciferol (Vitamin D3) 1,000 Unit Tab PO SCH (09:34)
[2018-08-15] MEDS: Cyanocobalamin (Vitamin B12) 500 MCG Tab PO SCH (09:34)
[2018-08-15] MEDS: Atenolol/Chlorthalidone 50-25 MG Tab PO SCH (09:34)
--- NOTE | 2018-08-15 13:46 | DISCH ---
DISCHARGE DATE: 08/15/2018 HISTORY OF PRESENT ILLNESS: Gaurav Bradshaw is a 72-year-old, male, has been in swing bed. Underwent a joint replacement. Doing well. Living situation difficult, lives in his kitchen only. The pain appears to be controlled. Some alteration medicines were noted. Renal ultrasound revealed stable cysts without complicating issue. Abdomen CT pelvis revealed stability to a cyst. HOSPITAL COURSE: Rehab was involved, Physical therapy was involved. Pain was controlled, ambulation skills without conflict. Leeds now in place since 08/04/2018. Upcoming appointment on 08/20/2017, per Dr. Tomas. PHYSICAL EXAMINATION: VITAL SIGNS: 36.1, 65, 116/67, 18, and 99. GENERAL: Appears comfortable. HEENT: Unremarkable. NECK: Benign. Thyroid small. No adenopathy. No carotid bruits. CHEST: Clear in all lung wells. No adventitious sounds. HEART: No ectopy or murmur on auscultation. ABDOMEN: Benign. Surgical wound was viewed today. Leeds in good position. Normal postop redness and healing. ASSESSMENT: Right knee joint replacement. PLAN: Discharge to home. Home physical therapy. Complementary care and well being. Follow up with Dr. Tomas as planned. /[id number] /DANYA
== END 2018-08-15 15:30 | disposition home or self-care (01) | DRG 561 ==
LOC: FB.MS 09:23
PROVIDERS: ADMIT Orthopaedic Surgery; ATTEND Orthopaedic Surgery
DX: Z47.1 Aftercare following joint replacement surgery (principal); Z96.651 Presence of right artificial knee joint; Z98.890 Other specified postprocedural states; R33.8 Other retention of urine; R31.0 Gross hematuria; I10 Essential (primary) hypertension; E11.9 Type 2 diabetes mellitus without complications; E78.5 Hyperlipidemia, unspecified; E79.0 Hyperuricemia without signs of inflammatory arthritis and tophaceous disease; E87.6 Hypokalemia; Z79.84 Long term (current) use of oral hypoglycemic drugs
CPT/HCPCS: 36415; 51701; 51702; 51703; 74176; 76770; 80048; 80053; 81001; 82962; 85018; 85025; 85610; 87086; 87186; 97110-GP; 97116-GP; 97530-GO; 97535-GO; A9270-GY